=== PATIENT | male | born 1940 | race Caucasian/White ===

== ENCOUNTER 2023-07-27 13:16 | Emergency (ER) | payer MEDICARE, OTHER, SELFPAY ==
[2023-07-27 13:23] VITALS: BP 131/57
[2023-07-27 13:57] LABS: % Basophils 0.4 % (0-2); % Eosinophils 0.4 % (0-6); % Immature Granulocytes 0.3 % (0-0.5); % Lymphocytes 11.3 % (20.5-51.1); % Monocytes 6.6 % (1.7-9.3); Absolute Lymphocytes 0.9 10^3/uL (1.2-3.4); Absolute Monocytes 0.5 10^3/uL (0.1-0.6); Absolute Neutrophils 6.3 10^3/uL (1.4-6.5); Hematocrit 33.3 % (39.0-52.0); Hemoglobin 10.5 g/dL (13.0-18.0); Mean Corp Hgb Conc. 31.5 g/dL (33.0-37.0); Mean Corpuscular Hgb 30.3 pg (27.0-31.0); Mean Platelet Volume 8.5 fL (7.4-10.4); Nucleated Red Blood Cells % 0 % (-); Platelet Count 419 10^3/uL (130-400); Red Blood Cell Count 3.47 10^6/uL (4.70-6.10); Red Cell Dist. Width 13.7 % (11.5-14.5); White Blood Cell Count 7.8 10^3/uL (4.8-10.8)
[2023-07-27 14:07] LABS: ALT (SGPT) 12 U/L (0-50); AST (SGOT) 19 U/L (17-59); Albumin 3.4 g/dl (3.5-5.0); Alkaline Phosphatase 94 U/L (38-126); Blood Urea Nitrogen 29 mg/dl (9-20); Calcium 9.4 mg/dl (8.4-10.2); Carbon Dioxide 32 mmol/L (22-30); Chloride 95 mmol/L (98-107); Glucose 120 mg/dl (70-99); Potassium 4.8 mmol/L (3.5-5.1); Sodium 133 mmol/L (135-145); Total Bilirubin 0.7 mg/dl (0.2-1.3); Total Protein 6.2 g/dl (6.3-8.2); eGFR 59.26
[2023-07-27 14:44] LABS: Urine Albumin 1+ (Neg - Trace); Urine Bilirubin 1+ (Negative); Urine Character Very Cloudy (Clear); Urine Color Brown; Urine Glucose Negative (Negative); Urine Ketone Negative (Negative); Urine Leukocyte 1+ (Negative); Urine Nitrite Positive (Negative); Urine Occult Blood 4+ (Negative); Urine Urobilinogen 2+ (Neg - 1+)
--- NOTE | 2023-07-27 15:23 | ED.GENMED ---
History of Present Illness
General
Chief Complaint: Urinary Symptoms
Source: patient, spouse and family
Time Seen by Provider: 07/27/23 15:14
Travel History
Have you had any contact with someone who has COVID-19?: No
Do you have any symptoms of coronavirus? Fever > 100 degrees, chills, cough, shortness of breath, sore throat, loss of taste or smell, muscle aches, or headache?: No
History of Present Illness
History of Present Illness:
83-year-old male presents emergency department the company of his and son. He typically lives in [place] but came here because he does not want a wait in the ER at [facility]. He is very eager to leave from the moment I met him and told me
to hurry up or he is leaving now. He describes noticing 'dark urine' since Thursday. He denies bright red blood, clots, difficulty urinating/retention, dysuria, urgency. He has an overactive bladder and typically has frequency. He denies chest
pain, shortness of breath, flank pain, abdominal pain, testicular pain, or other symptoms. He denies fever, chills, nausea, vomiting, sweats patient denies taking blood thinning medication.
Past History
Past History
ED Past Medical History: CHF, GERD, HTN and Hypercholesterolemia
ED Past Surgical History: Orthopedic
Phy Exam
Physical Exam
Physical Exam:
GENERAL: Alert , in no apparent distress� Patient refused to get into a gown and therefore he was examined fully dressed
EYE: pupils equal and reactive
NECK: Supple, no significant adenopathy.
ENT: o/p clr, mmm.
CARDIAC: Regular rate and rhythm .
LUNGS: Clear breath sounds bilaterally, no acute respiratory distress, no wheezes/rales/rhonchi
ABDOMEN: Soft, without focal tenderness, no r/g, no cvat
NEUROLOGICAL: Alert and oriented, nonfocal
SKIN: Warm and dry, skin intact.
MUSCULOSKELETAL: No edema, well perfused.
PSYCH: Normal and appropriate interaction.
Course
Orders/Labs/Results
Orders:
Orders
07/27/23 13:36
Complete Blood Count/With Diff Urgent
Comprehensive Metabolic Panel Urgent
07/27/23 14:09
Urinalysis Reflex To Culture Urgent
Date Specimen was Collected: 07/27/23
Time Specimen was Collected: 13:29
Urine Microscopic Reflex Cult Urgent
Urine Culture Urgent
NORA Source: U
Specimen Description:
Date Specimen was Collected: 07/27/23
Time Specimen was Collected: 13:29
Abnormal Lab Results
07/27/23 07/27/23
13:36 14:09
RBC 3.47 L 10^6/uL
(4.70-6.10)
Hgb 10.5 L g/dL
(13.0-18.0)
Hct 33.3 L %
(39.0-52.0)
MCV 96.0 H fL
(80.0-94.0)
MCHC 31.5 L g/dL
(33.0-37.0)
Plt Count 419 H 10^3/uL
(130-400)
Absolute Lymphs (auto) 0.9 L 10^3/uL
(1.2-3.4)
Neutrophils % 81.0 H %
(42.2-75.2)
Lymphocytes % 11.3 L %
(20.5-51.1)
Sodium 133 L mmol/L
(135-145)
Chloride 95 L mmol/L
(98-107)
Carbon Dioxide 32 H mmol/L
(22-30)
BUN 29 H mg/dl
(9-20)
Glucose 120 H mg/dl
(70-99)
Total Protein 6.2 L g/dl
(6.3-8.2)
Albumin 3.4 L g/dl
(3.5-5.0)
Ur Occult Blood Reflex 4+ A
(Negative)
Urine Nitrite (Reflex) Positive A
(Negative)
Urine Bilirubin 1+ A
(Negative)
Urine Urobilinogen 2+ A
(Neg - 1+)
Leukocyte Esterase Rfl 1+ A
(Negative)
Urine RBC 80-90 A /HPF
(0-2)
Urine Bacteria (Reflex) Few A
(Negative)
Urine Albumin (Reflex) 1+ A
(Neg - Trace)
07/27/23 13:36
07/27/23 13:36
Vital Signs
Initial and Last Documented VS:
Initial Vital Signs
Temp Pulse Resp BP Pulse Ox
97.8 F 73 16 131/57 98
07/27/23 13:23 07/27/23 13:23 07/27/23 13:23 07/27/23 13:23 07/27/23 13:23
Last Documented Vital Signs
Temp Pulse Resp BP Pulse Ox
97.8 F 73 16 131/57 98
07/27/23 13:23 07/27/23 13:23 07/27/23 13:23 07/27/23 13:23 07/27/23 13:23
*Critical Care Note
Total Time (30-74mins, 75-104mins- exclusive of procedures): Not Applicable
Update Note
Update Note:
Patient presents to the Emergency Department with dark urine
Number and Complexity of Problems Addressed at the Encounter
� Chronic conditions affecting care:
� Acute Exacerbation and/or Progression of Chronic Illness:
� Differential Diagnosis includes: But not limited to dehydration, UTI, hematuria, etc.
Amount and/or Complexity of Data to be Reviewed and Analyzed
� I performed an independent evaluation of and my interpretation is:
EKG:
CT:
Xrays:
Laboratory Studies: Anemia noted, no prior for comparison nonspecific hyperglycemia
Other: UA partially resulted demonstrates nitrite positive, blood positive, cell count pending
� Review of other/old records reveals:
� Clinical information was obtained by an independent historian:
� Prescriptions/Medications Considered but not given:
� Further testing considered but not performed:
Risk of Complications and/or Morbidity or Mortality of Patient Management
� Social determinants of health affecting care:
� Discussion with other providers (PCP, Hospitalists, Consultants, etc):
� Escalation of care including admission/observation vs risk of discharge considered: 3:26 PM patient refuses to wait for cell count for urinalysis to confirm if infection truly present. I will ask him to give me the phone
number of his pharmacy and I offered to call in a prescription for an antibiotic if in fact his urinalysis confirms this. He is aware of the importance of follow-up and reasons return to the ER. I also printed out all his labs so he can follow-up
on his lab abnormalities including anemia.
5:12 PM patient called and follow-up, aware that his cell count is equivocal, however given his symptoms of dark urine, microscopic hematuria noted, nitrate, leuk esterase, etc., we will presumptively treat while awaiting urine culture. Antibiotic
called into his pharmacy.
ED Attending Note
-
Portions of this chart may have been created with voice recognition software.� Occasional wrong word or��sound alike� substitutions may have occurred due to the inherent limitations of voice recognition software.
Discharge Plan
Departure
Patient Disposition: Home (Routine Discharge)
Date of Disposition: 07/27/23
Time of Disposition: 17:12
Patient with high blood pressure during this ER visit?: Yes
Condition: Good
Discharge Problem:
Hematuria
Instructions: Blood in the Urine (Hematuria), Adult (DC), BLOOD PRESSURE
Prescriptions:
New
ciprofloxacin HCl 500 mg tablet
500 mg PO BID Qty: 14 0RF
Referrals:
Amrit Estrada MD [Family Provider] -
Activity Restrictions/Additional Instructions:
YOU DECLINE TO WAIT FOR FULL TESTING RESULTS IN ORDER FOR US TO TREAT YOU. SEE ATTACHED LABS, THAT DEMONSTRATE ABNORMALITIES THAT REQUIRE CLOSE FOLLOW UP. IF YOU DEVELOP FEVER, BLEEDING, CHEST PAIN, FLANK PAIN, ABDOMINAL PAIN, OR OTHER WORRISOME
SIGNS, GO TO THE ER IMMEDIATELY!
Interventions
Interventions:
*ED COVID-19 Vaccine History Last Done: 07/27/23 13:23
*Nursing Disposition Last Done: 07/27/23 15:51
ED-Male Genitourinary Assessment Last Done: 07/27/23 15:43
Discharge Date and Time
Discharge Date/Time: 07/27/23 15:51
[2023-07-27 15:24] LABS: Urine Bacteria Few (Negative); Urine Red Blood Cell 80-90 /HPF (0-2)
== END 2023-07-27 15:51 | disposition home or self-care (01) ==
LOC: EMR 13:16
PROVIDERS: Emergency Medicine; EMERGENCY PHYSICIAN Emergency Medicine; FAMILY PHYSICIAN Internal Medicine
DX: R31.29 Other microscopic hematuria (principal); N32.81 Overactive bladder; I11.0 Hypertensive heart disease with heart failure; I50.9 Heart failure, unspecified; E78.00 Pure hypercholesterolemia, unspecified; K21.9 Gastro-esophageal reflux disease without esophagitis
CPT/HCPCS: 99283; 80053; 81003; 81015; 85025; 87086